=== PATIENT | female | born 1985 | race Hispanic/Latino ===

== ENCOUNTER 2018-05-31 21:23 | Emergency (ER) | payer BC, MEDICAID, OTHER ==
[2018-05-31 23:13] LABS: APPEARANCE,URINE Clear (CLEAR); BILIRUBIN,URINE Negative (NEGATIVE); COLOR,URINE Yellow (YELLOW); GLUCOSE, URINE (UA) Negative (NEGATIVE); KETONES,URINE Negative (NEGATIVE); LEUKOCYTE ESTERASE ,URINE Trace (NEGATIVE); NITRATE,URINE Negative (NEGATIVE); OCCULT BLOOD,URINE Negative (NEGATIVE); PROTEIN,URINE Negative (NEGATIVE); UROBILINOGEN,URINE 0.2 mg/dL (0.2-1.0)
[2018-05-31 23:17] LABS: BASOPHILS % (AUTO) 2.9 % (0.0-5.0); EOSINOPHILS % (AUTO) 5.4 % (0.0-8.0); HEMATOCRIT 40.3 % (36-48); LYMPHOCYTES % (AUTO) 11.2 % (21.0-51.0); MEAN CORPUSCULAR HEMOGLOBIN 27.4 pg (27.0-33.0); MEAN CORPUSCULAR HGB CONC 33.1 g/dL (32.0-36.0); MEAN CORPUSCULAR VOLUME 82.7 fL (79-99); MONOCYTES % (AUTO) 5.5 % (3.0-13.0); NUCLEATED RED BLOOD CELLS 0.1 % (0.0-0.19); PLATELET COUNT (AUTO) 303 K/uL (130-400); RED BLOOD CELL COUNT(AUTO) 4.87 MIL/uL (4.00-5.50); RED CELL DISTRIBUTION WIDTH 15.5 % (11.0-15.5); WHITE BLOOD COUNT (AUTO) 9.9 K/uL (4.8-10.8)
[2018-05-31 23:18] LABS: BACTERIA,URINE None Seen /HPF (None Seen); CREATININE 0.8 mg/dL (0.5-1.5); POTASSIUM 3.6 mmol/L (3.5-5.1); RBC,URINE None Seen /HPF (0-1); SQUAMOUS EPITHELIAL CELL,UR Rare /HPF (0-2); WBC,URINE 0-1 /HPF (0-1)
[2018-05-31 23:26] LABS: INR 0.92 (0.85-1.15); PROTHROMBIN TIME 9.7 SEC (9.6-11.6)
== END 2018-06-01 00:40 | disposition home or self-care (01) ==
LOC: EDH 21:23
DX: O20.0 Threatened abortion (principal); E11.9 Type 2 diabetes mellitus without complications; E78.5 Hyperlipidemia, unspecified; Z3A.01 Less than 8 weeks gestation of pregnancy; Z72.0 Tobacco use; Z98.890 Other specified postprocedural states
CPT/HCPCS: 36415; 76801; 80048; 81001; 84702; 85025; 85610; 85730

== ENCOUNTER 2018-09-15 22:18 | Observation (INO) | payer MEDICAID ==
[~2018-09-15] VITALS: Ht 157.5 cm; Wt 98.0 kg
[2018-09-15 23:10] VITALS: BP 132/72
[2018-09-15 23:20] LABS: BILIRUBIN,URINE Negative (NEGATIVE); COLOR,URINE Yellow (YELLOW); GLUCOSE, URINE (UA) Negative (NEGATIVE); KETONES,URINE Negative (NEGATIVE); LEUKOCYTE ESTERASE ,URINE Negative (NEGATIVE); NITRATE,URINE Negative (NEGATIVE); OCCULT BLOOD,URINE Negative (NEGATIVE); PROTEIN,URINE Negative (NEGATIVE); UROBILINOGEN,URINE 0.2 mg/dL (0.2-1.0)
[2018-09-15 23:29] LABS: APPEARANCE,URINE CLEAR (CLEAR)
[2018-09-16] MEDS ORDERED: AMPICILLIN 2GM+NS 100ML 100 ML IV SCH (01:00)
[2018-09-16] MEDS ORDERED: LACTATED RINGERS 1000ML 1,000 ML IV SCH (01:00)
[2018-09-16] MEDS ORDERED: PREN1TAB80 PO (05:19)
== END 2018-09-16 08:30 | disposition home or self-care (01) ==
LOC: EDH 22:18 → UNDOADMOB 22:19 → LDH 22:19
PROVIDERS: ADMIT Obstetrics & Gynecology; ATTEND Obstetrics & Gynecology
DX: O26.892 Other specified pregnancy related conditions, second trimester (principal); N89.8 Other specified noninflammatory disorders of vagina; Z87.891 Personal history of nicotine dependence; Z3A.22 22 weeks gestation of pregnancy
CPT/HCPCS: 76805; 81003; 82120; 96365; 99284; G0378 ×10; J0290; J7120; 96360; 96361

== ENCOUNTER 2019-02-01 19:53 | Emergency (ER) | payer MEDICAID ==
[~2019-02-01 19:53] MED LIST: PREN1TAB80 PO
== END 2019-02-01 21:11 | disposition home or self-care (01) ==
LOC: EDH 19:53
DX: K64.8 Other hemorrhoids (principal); Z98.890 Other specified postprocedural states; Z87.891 Personal history of nicotine dependence
CPT/HCPCS: 82270

== ENCOUNTER 2020-04-29 02:10 | Inpatient (IN) | payer MEDICAID ==
[~2020-04-29] VITALS: Ht 160 cm; Wt 105.7 kg
[2020-04-29] MEDS ORDERED: LACTATED RINGERS 1000ML IV PRN (02:30)
[2020-04-29 03:00] VITALS: BP 146/78
[2020-04-29 03:10] LABS: HEMATOCRIT 36.9 % (36-48); MEAN CORPUSCULAR HEMOGLOBIN 27.2 pg (27.0-33.0); MEAN CORPUSCULAR HGB CONC 33.1 g/dL (32.0-36.0); MEAN CORPUSCULAR VOLUME 82.2 fL (79-99); RED BLOOD CELL COUNT(AUTO) 4.49 MIL/uL (4.00-5.50); RED CELL DISTRIBUTION WIDTH 13.3 % (11.0-15.5); WHITE BLOOD COUNT (AUTO) 9.3 K/uL (4.8-10.8)
[2020-04-29] MEDS ORDERED: CEFAZOLIN SODIUM 1 GM VIAL IVP PRN (03:30)
[2020-04-29] MEDS ORDERED: CALDOLOR 800MG+NS 250ML 250 ML IV PRN (03:30)
[2020-04-29] MEDS ORDERED: LACTATED RINGERS 1000ML 1,000 ML IV SCH (03:30)
[2020-04-29] MEDS ORDERED: CEFAZOLIN SODIUM 1 GM VIAL ONE (03:38)
[2020-04-29 03:44] LABS: INR 0.87 (0.85-1.15); PARTIAL THROMBOPLASTIN TIME 27.1 SEC (26.3-35.5); PROTHROMBIN TIME 9.4 SEC (9.6-11.6)
[2020-04-29] MEDS ORDERED: TRANEXAMIC ACID 1000MG/10ML ONE (03:45)
[2020-04-29] MEDS ORDERED: CALDOLOR 800MG+NS 250ML 250 ML IV ONE (03:45)
[2020-04-29] MEDS ORDERED: MISOPROSTOL 200 MCG TABLET ONE (03:46)
[2020-04-29 03:50] LABS: CREATININE 0.6 mg/dL (0.5-1.5); POTASSIUM 3.9 mmol/L (3.5-5.1)
[2020-04-29] MEDS ORDERED: OXYTOCIN 10 USP UNITS/ML ONE (03:51)
[2020-04-29] MEDS ORDERED: PORACTANT ALFA 120 MG/1.5 ML VIAL IH ONE (03:51)
[2020-04-29] MEDS ORDERED: DURAMORPH PF1 MG/ML 10ML AMP IV ONE (03:51)
[2020-04-29] MEDS ORDERED: PORACTANT ALFA 240 MG/3 ML VIAL IH ONE ×2 (03:52→03:56)
[2020-04-29 03:54] LABS: ALBUMIN 2.4 g/dL (3.5-5.0); BILIRUBIN,TOTAL 0.2 mg/dL (0.2-1.0); TOTAL PROTEIN, SERUM 6.6 g/dL (6.0-8.3); URIC ACID 3.3 mg/dL (2.6-7.2)
[2020-04-29] MEDS ORDERED: HYDROCODONE/ACETAMINOPHEN 5/325 MG TAB PO PRN (04:00)
[2020-04-29] MEDS ORDERED: DIPHENHYDRAMINE HCL 25 MG CAPSULE PO PRN (04:00)
[2020-04-29] MEDS ORDERED: ACETAMINOPHEN EXTRA STRENGTH 500 MG TABLET PO PRN (04:00)
[2020-04-29] MEDS ORDERED: PROMETHAZINE HCL 25 MG/ML 1ML AMPULE IM PRN (04:00)
[2020-04-29] MEDS: DIPH,PERTUSS(ACELL),TET VAC/PF 0.5 ML VIAL IM SCH (04:00)
[2020-04-29] MEDS ORDERED: BISACODYL 10 MG SUPP.RECT RC PRN (04:00)
[2020-04-29] MEDS ORDERED: IBUPROFEN 600 MG TABLET PO PRN (04:00)
[2020-04-29] MEDS ORDERED: OXYTOCIN-LR 20 UNITS/1000 ML 1,000 ML IV PRN (04:00)
[2020-04-29] MEDS ORDERED: MEPERIDINE-PF 75 MG/ML SYG IM PRN (04:00)
[2020-04-29] MEDS ORDERED: LANOLIN 30GM OINTMENT TP PRN (04:00)
[2020-04-29] MEDS ORDERED: DEXTROSE 5 %-0.45 % NACL 1,000 ML IV PRN (04:00)
[2020-04-29] MEDS ORDERED: ACETAMINOPHEN-CODEINE 300/30MG TAB PO PRN (04:00)
[2020-04-29] MEDS ORDERED: SODIUM CHLORIDE 0.9% 10 ML VIAL IVP PRN (04:00)
[2020-04-29] MEDS ORDERED: KETOROLAC TROMETHAMINE 30MG/ML ONE (04:21)
[2020-04-29] MEDS ORDERED: ONDANSETRON HCL 4 MG/2 ML VIAL ONE (04:25)
[2020-04-29] MEDS ORDERED: DiphenhydrAMINE HCL 50 MG/ML VIAL IVP PRN (06:45)
[2020-04-29] MEDS ORDERED: NALOXONE HCL 0.4 MG/1 ML ML IVP PRN ×3 (06:45)
[2020-04-29] MEDS ORDERED: ONDANSETRON HCL 4 MG/2 ML VIAL IVP PRN (06:45)
[2020-04-29 08:00] VITALS: BP 143/78
[2020-04-29] MEDS: SIMETHICONE 80 MG TAB.CHEW PO PRN ×2 (08:52→20:46)
[2020-04-29] MEDS: DOCUSATE SODIUM 100 MG CAP PO SCH ×2 (08:52→20:46)
[2020-04-29 11:19] VITALS: BP 129/76
[2020-04-29] MEDS: IBUPROFEN 800 MG TAB PO SCH ×2 (12:00→20:00)
[2020-04-29] MEDS: CALDOLOR 800MG+NS 250ML 250 ML IV SCH ×2 (12:15→20:43)
[2020-04-29 14:23] LABS: HEMATOCRIT 37.3 % (36-48); MEAN CORPUSCULAR HEMOGLOBIN 27.1 pg (27.0-33.0); MEAN CORPUSCULAR HGB CONC 32.4 g/dL (32.0-36.0); MEAN CORPUSCULAR VOLUME 83.6 fL (79-99); RED BLOOD CELL COUNT(AUTO) 4.46 MIL/uL (4.00-5.50); RED CELL DISTRIBUTION WIDTH 13.4 % (11.0-15.5); WHITE BLOOD COUNT (AUTO) 13.9 K/uL (4.8-10.8)
[2020-04-29 17:07] VITALS: BP 127/78
[2020-04-29] MEDS: LIDOCAINE 5% TOPICAL PATCH TP SCH (17:44)
[2020-04-29 19:29] VITALS: BP 134/81
--- NOTE | 2020-04-29 22:37 | NUR ---
PT. AMBULATED TO N TO VISIT BABY, WELL TOLERATED.
--- NOTE | 2020-04-29 22:50 | NUR ---
PT.WALKED BACK TO ROOM FROM [facility], DENIED PAIN AND DISCOMFORT.
[2020-04-29 23:27] VITALS: BP 111/54
[2020-04-30 03:52] VITALS: BP 135/74
[2020-04-30] MEDS: DIPH,PERTUSS(ACELL),TET VAC/PF 0.5 ML VIAL IM SCH ×2 (04:00→04:33)
[2020-04-30] MEDS: MEASLES/MUMPS/RUBELLA VACCINE, LIVE 0.5 ML/VIAL SQ SCH ×2 (04:00→04:34)
--- NOTE | 2020-04-30 04:00 | NUR ---
PT. REFUSED TDAP AND MMR VACCINES, REFUSAL TO SUBMIT TO TREATMENT SIGNED BY PT WITH FULL UNDERSTANDING.
[2020-04-30] MEDS: IBUPROFEN 800 MG TAB PO SCH ×2 (04:01→11:13)
--- NOTE | 2020-04-30 04:40 | NUR ---
LIDODERM PATCH REMOVED. ABDOMINAL INCISION REMAIN CLEAN D/I.
[2020-04-30 07:13] VITALS: BP 119/60
--- NOTE | 2020-04-30 08:10 | NUR ---
PATIENT ASSESSED AND DRESSING TO INCISION REMOVED AND INCISION HAS NO DRAINAGE AND IS WELL APRROXIMATED. PATIENT IS DUE TO VOID ONE MORE TIME AND WILL THEN REMOVED IV LINES. VAGINAL BLEEDING IS SMALL AND PATIENT DENIES DIZZINESS ON AMBULATION.
[2020-04-30 08:13] LABS: HEPATITIS Bs ANTIGEN SCREEN P Negative (Negative)
[2020-04-30] MEDS: LIDOCAINE 5% TOPICAL PATCH TP SCH (08:39)
[2020-04-30] MEDS: SIMETHICONE 80 MG TAB.CHEW PO PRN (08:39)
[2020-04-30] MEDS: DOCUSATE SODIUM 100 MG CAP PO SCH (08:39)
--- NOTE | 2020-04-30 11:00 | NUR ---
PATIENT STATES VOIDING FOR SECOND TIME AND PIV REMOVED AND SALINE LOCK. PATIENT HAD TWO IV LINES AND BOTH SITES WERE WNL. PATIENT DENIES PAIN.
[2020-04-30 11:07] VITALS: BP 138/83
--- NOTE | 2020-04-30 12:05 | NUR ---
PATIENT WAS TAKEN VIA W/C TO FAMILY VEHICLE AND WAS DISCHARGE TO HER SPOUSE IN STABLE CONDITION. PATIENT DENIES PAIN. PIV WAS REMOVED AFTER ASSESSMENT THIS A.M.
== END 2020-04-30 12:05 | disposition home or self-care (01) | DRG 540 ==
LOC: EDH 02:10 → LDH 02:11 → OBSVTOIN 02:11 → WSH 06:55
PROVIDERS: ADMIT Specialist; ATTEND Specialist
PROC: 10D00Z1 Extraction of Products of Conception, Low, Open Approach (ICD-10-PCS; principal; 2020-04-29 04:00)
DX: O24.420 Gestational diabetes mellitus in childbirth, diet controlled (principal); O34.211 Maternal care for low transverse scar from previous cesarean delivery; O42.913 Preterm premature rupture of membranes, unspecified as to length of time between rupture and onset of labor, third trimester; O99.214 Obesity complicating childbirth; O60.14X0 Preterm labor third trimester with preterm delivery third trimester, not applicable or unspecified; E66.9 Obesity, unspecified; Z3A.34 34 weeks gestation of pregnancy; Z37.0 Single live birth
CPT/HCPCS: 36415; 59510; 80053; 84550; 85027; 85384; 85610; 85730; 86592; 86850; 86900; 86901; 87340; A4344; G0378; J0690; J1741; J1885; J2274; J2405; J2590; J3490; J7120; Q0163

== ENCOUNTER 2021-07-04 03:40 | Emergency (ER) | payer MEDICAID ==
[~2021-07-04] VITALS: Ht 160 cm; Wt 85.3 kg
[2021-07-04] MEDS ORDERED: ONDANSETRON 4MG INJ ONE (03:59)
[2021-07-04] MEDS ORDERED: 0.9%NACL 1000ML 1,000 ML IV ONE (04:00)
[2021-07-04] MEDS ORDERED: ONDANSETRON 4MG INJ IVP ONE (04:00)
[2021-07-04 04:04] LABS: BASOPHILS % (AUTO) 0.2 % (0.0-5.0); EOSINOPHILS % (AUTO) 1.2 % (0.0-8.0); HEMATOCRIT 43.4 % (36-48); LYMPHOCYTES % (AUTO) 7.1 % (21.0-51.0); MEAN CORPUSCULAR HEMOGLOBIN 27.6 pg (27.0-33.0); MEAN CORPUSCULAR HGB CONC 32.3 g/dL (32.0-36.0); MEAN CORPUSCULAR VOLUME 85.6 fL (79-99); NEUTROPHILS % (AUTO) 84.9 % (40.0-77.0); PLATELET COUNT (AUTO) 270 K/uL (130-400); RED BLOOD CELL COUNT(AUTO) 5.07 MIL/uL (4.00-5.50); RED CELL DISTRIBUTION WIDTH 13.2 % (11.0-15.5); WHITE BLOOD COUNT (AUTO) 13.9 K/uL (4.8-10.8)
[2021-07-04 04:11] VITALS: BP 114/66
[2021-07-04 04:13] LABS: CREATININE 0.6 mg/dL (0.5-1.5); POTASSIUM 3.6 mmol/L (3.5-5.1)
[2021-07-04 04:17] LABS: ALBUMIN 3.9 g/dL (3.5-5.0); BILIRUBIN,TOTAL 0.6 mg/dL (0.2-1.0); MAGNESIUM 1.7 mg/dL (1.80-2.40); TOTAL PROTEIN, SERUM 7.8 g/dL (6.0-8.3)
[2021-07-04] MEDS ORDERED: ONDA4TAB4 PO (06:00)
[2021-07-04 06:12] LABS: APPEARANCE,URINE Cloudy (CLEAR); BILIRUBIN,URINE Negative (NEGATIVE); COLOR,URINE Yellow (YELLOW); GLUCOSE, URINE (UA) Negative (NEGATIVE); KETONES,URINE Negative (NEGATIVE); LEUKOCYTE ESTERASE ,URINE Negative (NEGATIVE); NITRATE,URINE Negative (NEGATIVE); OCCULT BLOOD,URINE Negative (NEGATIVE); PH,URINE 5.5 (5.0-8.0); PROTEIN,URINE Negative (NEGATIVE); UROBILINOGEN,URINE 0.2 mg/dL (0.2-1.0)
[2021-07-04 06:32] LABS: BACTERIA,URINE Moderate /HPF (None Seen); RBC,URINE 0-1 /HPF (0-1); WBC,URINE 0-1 /HPF (0-1)
== END 2021-07-04 06:32 | disposition home or self-care (01) ==
LOC: EDH 03:40
DX: O26.891 Other specified pregnancy related conditions, first trimester (principal); A05.9 Bacterial foodborne intoxication, unspecified; E11.9 Type 2 diabetes mellitus without complications; Z79.899 Other long term (current) drug therapy; Z3A.01 Less than 8 weeks gestation of pregnancy
CPT/HCPCS: 36415; 80053; 81001; 83690; 83735; 85025; 87088; 96361; 96374; 99283; J2405; J7030